=== PATIENT | female | born 1955 | race Caucasian/White ===

== ENCOUNTER → 2019-01-05 13:34 | Outpatient (CLI) | payer MEDICARE, OTHER, SELFPAY | PROVIDERS: PCP Physician Assistant; Visit Provider Physician Assistant | DX: Z78.0 Asymptomatic menopausal state (principal); E28.39 Other primary ovarian failure | CPT/HCPCS: 77080 ==

== ENCOUNTER → 2019-01-06 06:58 | Outpatient (CLI) | payer MEDICARE, OTHER, SELFPAY ==
--- NOTE | 2019-01-06 07:02 | DI.MG.S_ITS ---
BILATERAL DIGITAL SCREENING MAMMOGRAM 3D/2D WITH CAD: 01/06/2019 CLINICAL: Routine screening. Comparison is made to exams dated: 07/17/2016 mammogram, 09/15/2013 mammogram, and 09/14/2013 mammogram - [facility]. The tissue of both breasts is extremely dense, which lowers the sensitivity of mammography. Current study was also evaluated with a Computer Aided Detection (CAD) system. No significant masses, calcifications, or other findings are seen in either breast. There has been no significant interval change. IMPRESSION: NEGATIVE There is no mammographic evidence of malignancy. A 1 year screening mammogram is recommended. This exam was interpreted at Station ID: [id number]. NOTE: For mammograms, a report in lay terms will be sent to the patient. Approximately 15% of breast malignancies will not be visualized mammographically. In the management of a palpable breast mass, a negative mammogram must not discourage biopsy of a clinically suspicious lesion. Electronically Signed By: Angel kennedy/jefferson:01/06/2019 10:27:55 letter sent: Normal Exam ACR BI-RADS Category 1: Negative 3341F
[2019-01-06 08:19] LABS: Alanine Aminotransferase 29 IU/L (9-52); Albumin 4.5 g/dL (3.5-5.0); Albumin Globulin Ratio 1.4 (1.0-2.8); Alkaline Phosphatase 90 U/L (38-126); Aspartate Aminotransferase 50 IU/L (14-36); BUN Creatinine Ratio 28.3 (6-22); Bilirubin Total 0.5 mg/dL (0.2-1.3); Blood Urea Nitrogen 17 mg/dL (7-17); Calcium 10.1 mg/dL (8.4-10.2); Carbon Dioxide 28 mmol/L (22-32); Chloride 103 mmol/L (98-107); Cholesterol 233 mg/dL (140-199); Estimated Glomerular Filt Rate > 60.0 mL/min (>60); Globulin 3.3 g/dL (1.7-4.1); Glucose 87 mg/dL (80-110); HEMOLYSIS < 15 (0-50); Potassium 4.2 mmol/L (3.4-5.1); Sodium 142 mmol/L (137-145); Total Protein 7.8 g/dL (6.3-8.2); Triglycerides 47 mg/dL (35-150)
[2019-01-06 08:27] LABS: HDL Cholesterol 127 mg/dL (40-60); LDL Cholesterol Calculated 97 mg/dL (<100)
== END ==
PROVIDERS: PCP Physician Assistant; Visit Provider Physician Assistant
DX: Z12.31 Encounter for screening mammogram for malignant neoplasm of breast (principal); Z13.6 Encounter for screening for cardiovascular disorders; Z13.220 Encounter for screening for lipoid disorders; K76.0 Fatty (change of) liver, not elsewhere classified
CPT/HCPCS: 36415; 77063; 77067; 80053; 80061

== ENCOUNTER → 2019-01-31 12:23 | Outpatient (CLI) | payer MEDICARE, OTHER, SELFPAY ==
[2019-01-31 16:03] LABS: Bacteria Urine None Seen
[2019-01-31 16:48] LABS: Appearance Urine UA CLOUDY; Bilirubin Urine UA NEGATIVE (NEGATIVE); Color Urine UA YELLOW; Glucose Urine UA NEGATIVE (Negative); Ketones Urine UA NEGATIVE (NEGATIVE); Leukocyte Esterase Urine UA 1+ (NEGATIVE); Nitrite Urine UA NEGATIVE (Negative); Occult Blood Urine UA 3+ (Negative); Protein Urine UA 1+ (Negative); Specific Gravity Urine UA 1.015 (1.000-1.035); Urobilinogen Urine UA 0.2 E.U./dL (0.2)
[2019-01-31 17:12] LABS: Culture Indicated Urine Specimen Cultured; RBC Urine 10-30/HPF (0-5/HPF); Squamous Epithelial Cell Urine 1-5 /HPF (0-5/HPF); Transitional Epi Cells Urine 0-1/HPF (0-5/HPF); WBC Urine 5-10/HPF (0-5/HPF)
== END ==
PROVIDERS: PCP Physician Assistant; Visit Provider Physician Assistant
DX: R30.0 Dysuria (principal)
CPT/HCPCS: 81001; 87086

== ENCOUNTER → 2019-11-08 10:06 | Outpatient (CLI) | payer MEDICARE, OTHER, SELFPAY | PROVIDERS: PCP Physician Assistant; Referring Provider Physician Assistant; Visit Provider Physician Assistant | DX: M05.79 Rheumatoid arthritis with rheumatoid factor of multiple sites without organ or systems involvement (principal); Z79.899 Other long term (current) drug therapy | CPT/HCPCS: 81001; 87077; 87086; 87186 ==

== ENCOUNTER → 2019-12-13 12:39 | Outpatient (ROUT) | payer MEDICARE, OTHER, SELFPAY ==
[2019-12-13 12:52] LABS: Add Manual Diff / Slide Review NO; Basophils Absolute Auto 0 /uL (0-100); Basophils Percent Auto 1.5 % (0-2); Eosinophils Absolute Auto 100 /uL (0-450); Eosinophils Percent Auto 4.2 % (2-4); Hematocrit 34.5 % (36-46); Hemoglobin 11.7 g/dL (12.0-16.0); Lymphocytes Absolute Auto 1700 /uL (1100-4500); Lymphocytes Percent Auto 53.2 % (25-40); Mean Corpuscular HGB Conc 33.9 % (30-36); Mean Corpuscular Volume 106.1 fL (80-100); Monocytes Absolute Auto 500 /uL (0-900); Monocytes Percent Auto 15.1 % (3-14); Neutrophils Absolute Auto 800 /uL (1500-7000); Platelet Count 119 X10^3/uL (150-400); Red Blood Cell Count 3.25 X10^6/uL (4.0-5.2); Red Cell Distribution Width 13.6 % (11.6-14.8); White Blood Cell Count 3.1 X10^3/uL (4.5-11.0)
[2019-12-13 13:12] LABS: Erythrocyte Sedimentation Rate 35 MM/HR (0-20)
[2019-12-13 13:46] LABS: T4 Total Thyroxine 5.88 ug/dL (5.5-11.0)
[2019-12-13 13:59] LABS: TSH w/ Reflex to FT4 2.42 uIU/mL (0.47-4.68)
[2019-12-13 15:23] LABS: Alanine Aminotransferase 38 IU/L (<35); Albumin 4.8 g/dL (3.5-5.0); Albumin Globulin Ratio 1.5 (1.0-2.8); Alkaline Phosphatase 121 U/L (38-126); Aspartate Aminotransferase 92 IU/L (14-36); BUN Creatinine Ratio 32.1 (6-22); Bilirubin Total 0.5 mg/dL (0.2-1.3); Blood Urea Nitrogen 18 mg/dL (7-17); Carbon Dioxide 29 mmol/L (22-32); Chloride 104 mmol/L (98-107); Estimated Glomerular Filt Rate > 60.0 mL/min (>60); Globulin 3.3 g/dL (1.7-4.1); Glucose 90 mg/dL (80-110); HEMOLYSIS < 15 (0-50); Potassium 4.1 mmol/L (3.4-5.1); Sodium 143 mmol/L (137-145); Total Protein 8.1 g/dL (6.3-8.2)
[2019-12-13 15:37] LABS: C-Reactive Protein Quant < 0.5 mg/dL (<1.0)
[2019-12-13 16:10] LABS: Vitamin D 25 Hydroxy (D3) 45.4 ng/mL (30.0-100.0)
[2019-12-13 16:27] LABS: Folate 10.3 ng/mL (2.76-20.0); Vitamin B12 593 pg/mL (239-931)
[2019-12-14 07:35] LABS: Triiodothyronine T3 Total 71 ng/dL (71-180)
[2019-12-14 13:53] LABS: ANA Screen, IFA Negative (.)
== END ==
PROVIDERS: PCP Physician Assistant; Visit Provider Internal Medicine
DX: H04.203 Unspecified epiphora, bilateral (principal); R53.83 Other fatigue; R26.89 Other abnormalities of gait and mobility; E55.9 Vitamin D deficiency, unspecified
CPT/HCPCS: 80053; 82306; 82607; 82746; 84436; 84443; 84480; 85025; 85651; 86038; 86140

== ENCOUNTER → 2019-12-16 07:41 | Outpatient (CLI) | payer MEDICARE, OTHER, SELFPAY ==
[2019-12-16 09:09] LABS: Hematocrit 35.4 % (36-46); Hemoglobin 11.9 g/dL (12.0-16.0); Mean Corpuscular HGB Conc 33.6 % (30-36); Mean Corpuscular Hemoglobin 35.5 PG (26-34); Mean Corpuscular Volume 105.8 fL (80-100); Platelet Count 137 X10^3/uL (150-400); Red Blood Cell Count 3.34 X10^6/uL (4.0-5.2); Red Cell Distribution Width 13.3 % (11.6-14.8); White Blood Cell Count 2.7 X10^3/uL (4.5-11.0)
[2019-12-16 09:10] LABS: Reticulocyte Count, Percent 1.2 % (1.06-2.63)
[2019-12-16 09:12] LABS: Prothrombin Time 11.9 SECONDS (10.1-12.7)
[2019-12-16 09:15] LABS: PTT Partial Thromboplastin Tim 33 SECONDS (26.4-36.2)
[2019-12-16 09:48] LABS: HEMOLYSIS < 15 (0-50); Iron 144 ug/dL (37-170); Neutrophils Absolute Manual 864 /uL (3000-5900); Total Cells Counted 100
[2019-12-16 09:50] LABS: Alanine Aminotransferase 39 IU/L (<35); Albumin 4.7 g/dL (3.5-5.0); Albumin Globulin Ratio 1.5 (1.0-2.8); Alkaline Phosphatase 105 U/L (38-126); Aspartate Aminotransferase 92 IU/L (14-36); Bilirubin Total 0.5 mg/dL (0.2-1.3); Bilirubin Unconjugated 0.4 mg/dL (0.0-1.1); Gamma Glutamyl Transpeptidase 159 U/L (12-43); Globulin 3.1 g/dL (1.7-4.1); HEMOLYSIS < 15 (0-50); Lactate Dehydrogenase 583 U/L (313-618); Macrocytosis 1+; Total Protein 7.8 g/dL (6.3-8.2)
[2019-12-16 09:59] LABS: Percent Iron Saturation 58 % (15-50); Total Iron Binding Capacity 247 ug/dL (265-497); Transferrin 227 mg/dL (206-381)
[2019-12-16 10:24] LABS: Ferritin 209 ng/mL (11-264)
[2019-12-16 10:28] LABS: Hepatitis B Surface Antigen NEGATIVE s/c (NEGATIVE)
[2019-12-17 03:17] LABS: Hepatitis B Core Antibody Negative (Negative); Hepatitis B Surf Ab Qualitativ Non Reactive (.)
[2019-12-17 05:40] LABS: Haptoglobin 87 mg/dL (37-355)
[2019-12-19 14:07] LABS: Alpha-1-Globulin 0.3 g/dL (0.0-0.4); Alpha-2-Globulin 0.7 g/dL (0.4-1.0); Gamma Globulin 1.3 g/dL (0.4-1.8); Globulin Total 3.3 g/dL (2.2-3.9); Protein, Total 7.3 g/dL (6.0-8.5)
== END ==
PROVIDERS: PCP Internal Medicine; Referring Provider Internal Medicine; Visit Provider Internal Medicine
DX: D61.818 Other pancytopenia (principal); R74.0 Nonspecific elevation of levels of transaminase and lactic acid dehydrogenase [LDH]; G62.9 Polyneuropathy, unspecified
CPT/HCPCS: 36415; 80076; 82728; 82977; 83010; 83540; 83550; 83615; 84155; 84165; 85025; 85045; 85610; 85730; 86704; 86706; 87340

== ENCOUNTER → 2020-08-17 11:43 | Outpatient (CLI) | payer MEDICARE, OTHER, SELFPAY ==
--- NOTE | 2020-08-17 | DI.CT.S_ITS ---
PROCEDURE: CT ABDOMEN PELVIS W CON INDICATIONS: Lower abdominal pain TECHNIQUE: After the administration of oral and intravenous contrast, 5 mm thick sections acquired from the diaphragms to the symphysis. 5 mm thick coronal and sagittal reformats were performed. For radiation dose reduction, the following was used: automated exposure control, adjustment of mA and/or kV according to patient size. COMPARISON: None. FINDINGS: Image quality: Excellent. ABDOMEN: Lung bases: Lung bases are clear. Heart size is normal. Solid organs: Within segment 7 of the right hepatic lobe, there is an oval hypoattenuating lesion with indistinct margins measuring up to 1.7 x 1.3 cm in transverse dimension. The finding is incompletely characterized on the current study. The gallbladder appears within normal limits without calcified gallstones. Biliary system is non-dilated. Pancreas enhances normally. No peripancreatic fat stranding or fluid collections. No pancreatic duct dilatation. The spleen is normal in size. No adrenal nodules. Kidneys demonstrate no hydronephrosis. Peritoneum and bowel: Stomach and small bowel loops are normal in caliber and wall thickness. The appendix is not discretely well visualized but there is no definite evidence of acute appendicitis. There is diffuse colonic wall thickening with mucosal enhancement and pericolonic fat stranding involving the ascending, transverse, and descending colon as well as the proximal sigmoid colon. The findings are consistent with a sousa-colitis. There is a short nondistended segment within the mid sigmoid colon with associated mild colonic wall thickening. Dilatation of the colon is demonstrated in the sigmoid colon proximal to this segment. Nodes and vessels: No retroperitoneal or mesenteric adenopathy. Aorta and inferior vena cava are normal in caliber. Miscellaneous: No ventral hernias. PELVIS: Genitourinary: Bladder wall thickness is normal. Miscellaneous: No inguinal hernias or adenopathy. Bones: No suspicious bony lesions. There is multilevel mild to moderate degenerative disc disease most prominent at L4-5 where there is moderate loss of disc height. There is also moderate facet arthropathy in the lower lumbar spine. No pars defects. Grade 2 anterolisthesis is demonstrated at L4-5. No vertebral body compression fractures. IMPRESSION: 1. Diffuse sousa-colitis likely secondary to an infectious or inflammatory etiology. Ischemic colitis is less likely given the length of involvement. 2. Short nondistended segment in the mid sigmoid colon with mild associated wall thickening and proximal colonic dilatation. The differential includes a segmental colitis, peristaltic activity, or intramural mass. Consider follow-up evaluation with colonoscopy when clinically feasible. 3. Nonspecific hypoattenuating lesion in the right hepatic lobe. Recommend follow-up evaluation with a liver protocol MRI or CT if clinically indicated. Dictated by: Shaka Hernandez M.D. on 08/17/2020 at 14:11 Approved by: Shaka Hernandez M.D. on 08/17/2020 at 14:24
[2020-08-17 13:26] LABS: Add Manual Diff / Slide Review NO; Basophils Absolute Auto 0 /uL (0-100); Basophils Percent Auto 0.5 % (0-2); Eosinophils Absolute Auto 0 /uL (0-450); Eosinophils Percent Auto 0.6 % (2-4); Hematocrit 38.4 % (36-46); Hemoglobin 12.7 g/dL (12.0-16.0); Lymphocytes Absolute Auto 1300 /uL (1100-4500); Lymphocytes Percent Auto 20.6 % (25-40); Mean Corpuscular HGB Conc 33.1 % (30-36); Mean Corpuscular Volume 102.7 fL (80-100); Monocytes Absolute Auto 1500 /uL (0-900); Monocytes Percent Auto 22.9 % (3-14); Neutrophils Absolute Auto 3600 /uL (1500-7000); Neutrophils Percent Auto 55.4 % (50-75); Platelet Count 187 X10^3/uL (150-400); Red Blood Cell Count 3.74 X10^6/uL (4.0-5.2); Red Cell Distribution Width 12.3 % (11.6-14.8); White Blood Cell Count 6.5 X10^3/uL (4.5-11.0)
[2020-08-17 13:42] LABS: Alanine Aminotransferase 14 IU/L (<35); Albumin 4.6 g/dL (3.5-5.0); Albumin Globulin Ratio 1.2 (1.0-2.8); Alkaline Phosphatase 82 U/L (38-126); Aspartate Aminotransferase 36 IU/L (14-36); BUN Creatinine Ratio 33.3 (6-22); Bilirubin Total 0.6 mg/dL (0.2-1.3); Blood Urea Nitrogen 22 mg/dL (7-17); C-Reactive Protein Quant 2.1 mg/dL (<1.0); Calcium 10.2 mg/dL (8.4-10.2); Carbon Dioxide 28 mmol/L (22-32); Chloride 101 mmol/L (98-107); Estimated Glomerular Filt Rate > 60.0 mL/min (>60); Globulin 3.9 g/dL (1.7-4.1); Glucose 98 mg/dL (80-110); HEMOLYSIS < 15 (0-50); Potassium 4.2 mmol/L (3.4-5.1); Sodium 137 mmol/L (137-145); Total Protein 8.5 g/dL (6.3-8.2)
[2020-08-17 13:47] LABS: Erythrocyte Sedimentation Rate 60 MM/HR (0-20)
[2020-08-17 14:12] LABS: Bacteria Urine None Seen; RBC Urine None Seen (0-5/HPF); WBC Urine None Seen (0-5/HPF)
[2020-08-17 14:44] LABS: Appearance Urine UA Clear; Color Urine UA Yellow; Glucose Urine UA NEGATIVE (Negative); Ketones Urine UA TRACE (NEGATIVE); Protein Urine UA Negative (Negative); Specific Gravity Urine UA 1.015 (1.000-1.035); pH Urine UA 5.5 (4.5-8.0)
[2020-08-17 14:45] LABS: Amorphous Sediment Urine 2+; Bilirubin Urine UA Negative (NEGATIVE); Leukocyte Esterase Urine UA NEGATIVE (NEGATIVE); Nitrite Urine UA NEGATIVE (Negative); Occult Blood Urine UA TRACE-LYSED (Negative); Urobilinogen Urine UA 0.2 E.U./dL (0.2)
[2020-08-17 14:46] LABS: Culture Indicated Urine Cult Not Indicated
== END ==
PROVIDERS: PCP Internal Medicine; Referring Provider Internal Medicine; Visit Provider Internal Medicine
DX: R10.30 Lower abdominal pain, unspecified (principal); K51.00 Ulcerative (chronic) pancolitis without complications; K76.9 Liver disease, unspecified
CPT/HCPCS: 36415; 74177; 80053; 81001; 85025; 85651; 86140

== ENCOUNTER → 2020-10-25 09:16 | Outpatient (CLI) | payer MEDICARE, OTHER, SELFPAY ==
[2020-10-25 10:52] LABS: Add Manual Diff / Slide Review NO; Basophils Absolute Auto 0 /uL (0-100); Basophils Percent Auto 0.8 % (0-2); Eosinophils Absolute Auto 100 /uL (0-450); Eosinophils Percent Auto 1.6 % (2-4); Hematocrit 36.3 % (36-46); Lymphocytes Absolute Auto 1500 /uL (1100-4500); Lymphocytes Percent Auto 40.9 % (25-40); Mean Corpuscular HGB Conc 33.1 % (30-36); Mean Corpuscular Hemoglobin 34.2 PG (26-34); Mean Corpuscular Volume 103.3 fL (80-100); Monocytes Absolute Auto 500 /uL (0-900); Monocytes Percent Auto 14.1 % (3-14); Neutrophils Absolute Auto 1500 /uL (1500-7000); Neutrophils Percent Auto 42.6 % (50-75); Platelet Count 184 X10^3/uL (150-400); Red Blood Cell Count 3.52 X10^6/uL (4.0-5.2); Red Cell Distribution Width 13.6 % (11.6-14.8); White Blood Cell Count 3.6 X10^3/uL (4.5-11.0)
[2020-10-25 12:01] LABS: Erythrocyte Sedimentation Rate 34 MM/HR (0-20)
[2020-10-25 12:19] LABS: Alanine Aminotransferase 20 IU/L (<35); Albumin 4.7 g/dL (3.5-5.0); Albumin Globulin Ratio 1.3 (1.0-2.8); Alkaline Phosphatase 112 U/L (38-126); Aspartate Aminotransferase 47 IU/L (14-36); BUN Creatinine Ratio 32.2 (6-22); Bilirubin Total 0.5 mg/dL (0.2-1.3); Blood Urea Nitrogen 19 mg/dL (7-17); Calcium 10.2 mg/dL (8.4-10.2); Carbon Dioxide 31 mmol/L (22-32); Chloride 102 mmol/L (98-107); Estimated Glomerular Filt Rate > 60.0 mL/min (>60); Globulin 3.6 g/dL (1.7-4.1); Glucose 86 mg/dL (80-110); HEMOLYSIS < 15 (0-50); Potassium 4.5 mmol/L (3.4-5.1); Sodium 137 mmol/L (137-145); Total Protein 8.3 g/dL (6.3-8.2)
[2020-10-25 12:24] LABS: C-Reactive Protein Quant < 0.5 mg/dL (<1.0)
== END ==
PROVIDERS: PCP Internal Medicine; Referring Provider Student in an Organized Health Care Education/Training Program; Visit Provider Student in an Organized Health Care Education/Training Program
DX: R10.9 Unspecified abdominal pain (principal)
CPT/HCPCS: 36415; 80053; 85025; 85651; 86140

== ENCOUNTER → 2020-12-07 11:09 | Outpatient (CLI) | payer MEDICARE, OTHER, SELFPAY ==
--- NOTE | 2020-12-07 | DI.MG.S_ITS ---
BILATERAL DIGITAL SCREENING MAMMOGRAM 3D/2D WITH CAD: 12/07/2020 CLINICAL: Routine screening. Comparison is made to exams dated: 01/06/2019 mammogram - [facility], 07/17/2016 mammogram, and 09/15/2013 mammogram - [facility]. The tissue of both breasts is extremely dense, which lowers the sensitivity of mammography. Current study was also evaluated with a Computer Aided Detection (CAD) system. No significant masses, calcifications, or other findings are seen in either breast. There has been no significant interval change. IMPRESSION: NEGATIVE There is no mammographic evidence of malignancy. A 1 year screening mammogram is recommended. This exam was interpreted at Station ID: [id number]. NOTE: For mammograms, a report in lay terms will be sent to the patient. Approximately 15% of breast malignancies will not be visualized mammographically. In the management of a palpable breast mass, a negative mammogram must not discourage biopsy of a clinically suspicious lesion. Electronically Signed By: Shaka carreno/jefferson:12/07/2020 12:26:59 letter sent: Normal Exam ACR BI-RADS Category 1: Negative 3341F
== END ==
PROVIDERS: PCP Physician Assistant; Referring Provider Physician Assistant; Visit Provider Physician Assistant
DX: Z12.31 Encounter for screening mammogram for malignant neoplasm of breast (principal)
CPT/HCPCS: 77063; 77067

== ENCOUNTER → 2020-12-12 09:31 | Outpatient (CLI) | payer MEDICARE, OTHER, SELFPAY ==
--- NOTE | 2020-12-12 | DI.CT.S_ITS ---
PROCEDURE: CT ABDOMEN WWO PELVIS W INDICATIONS: Lower abdominal pain. Liver lesion seen on prior CT. TECHNIQUE: After the administration of oral contrast, 5 mm thick sections acquired from the diaphragms to the iliac crests. After the administration of intravenous contrast, 5 mm thick sections acquired from the diaphragms to the symphysis. 5 mm thick coronal and sagittal reformats were acquired. For radiation dose reduction, the following was used: automated exposure control, adjustment of mA and/or kV according to patient size. COMPARISON: [facility], CT, CT ABDOMEN PELVIS W CON, 08/17/2020, 13:46. FINDINGS: Image quality: Excellent. ABDOMEN: Lung bases: There is minimal dependent atelectasis. Heart size is normal. Solid organs: Within segment 7 of the right hepatic lobe, there is an oval hypoattenuating lesion redemonstrated measuring up to 1.7 by 1.1 cm in transverse dimension, stable in size compared to the prior study. Following contrast administration, there is discontinuous eccentric peripheral hypervascular enhancement on the portal venous phase with progressive centripetal internal enhancement on the delayed phase. Findings are compatible with a cavernous hemangioma. There is a punctate hypodensity in the left hepatic lobe within segment 2 which is too small to characterize but likely represents a cyst and appears unchanged. The gallbladder appears within normal limits without calcified gallstones. Biliary system is non-dilated. Pancreas enhances normally. No peripancreatic fat stranding or fluid collections. No pancreatic duct dilatation. The spleen is normal in size. No adrenal nodules. Kidneys demonstrate no hydronephrosis. Bowel and peritoneum: Stomach and small bowel loops are normal in caliber and wall thickness. There is a large amount of stool throughout the colon. No free fluid or air. Nodes and vessels: No retroperitoneal or mesenteric adenopathy by size criteria. Aorta and inferior vena are normal in caliber. Miscellaneous: No ventral hernias. PELVIS: Genitourinary: Bladder wall thickness is normal. Miscellaneous: No inguinal hernias or adenopathy. Bones: No suspicious bony lesions. There is borderline grade 2 anterolisthesis at L4-5 with moderate degenerative disc disease. No pars defects. There is moderate facet arthropathy in the lower lumbar spine. No vertebral body compression fractures. IMPRESSION: 1. Stable lesion in segment 7 of the right hepatic lobe with imaging findings consistent with a cavernous hemangioma. 2. Large amount of colonic stool throughout the colon compatible with constipation or obstipation. No definite bowel obstruction. Dictated by: Shaka Hernanedz M.D. on 12/12/2020 at 16:33 Approved by: Shaka Hernandez M.D. on 12/12/2020 at 16:53
[2020-12-12 09:57] LABS: BUN Creatinine Ratio 33.3 (6-22); Blood Urea Nitrogen 21 mg/dL (7-17); Estimated Glomerular Filt Rate > 60.0 mL/min (>60)
== END ==
PROVIDERS: PCP Physician Assistant; Referring Provider Internal Medicine Endocrinology, Diabetes & Metabolism; Visit Provider Internal Medicine Endocrinology, Diabetes & Metabolism
DX: D18.09 Hemangioma of other sites (principal); M85.80 Other specified disorders of bone density and structure, unspecified site; Z78.0 Asymptomatic menopausal state; K76.9 Liver disease, unspecified; R10.30 Lower abdominal pain, unspecified
CPT/HCPCS: 36415; 74178; 77080; 82565; 84520; Q9967

== ENCOUNTER → 2021-12-18 10:58 | Outpatient (CLI) | payer MEDICARE, OTHER, SELFPAY ==
--- NOTE | 2021-12-18 | DI.MG.S_ITS ---
BILATERAL DIGITAL SCREENING MAMMOGRAM 3D/2D WITH CAD: 12/18/2021 CLINICAL: Routine screening. Comparison is made to exams dated: 12/07/2020 mammogram, 01/06/2019 mammogram - [facility], and 07/17/2016 mammogram - [facility]. The tissue of both breasts is extremely dense, which lowers the sensitivity of mammography. Current study was also evaluated with a Computer Aided Detection (CAD) system. There are two possible oval asymmetries with an obscured and circumscribed margin in the right breast middle depth lateral region seen on the craniocaudal view only. These are more prominent. No other significant masses, calcifications, or other findings are seen in either breast. IMPRESSION: INCOMPLETE: NEEDS ADDITIONAL IMAGING EVALUATION The possible asymmetries in the right breast most likely are cysts but remain indeterminate. Additional views with possible ultrasound are recommended. This exam was interpreted at Station ID: [id number]. NOTE: For mammograms, a report in lay terms will be sent to the patient. Approximately 15% of breast malignancies will not be visualized mammographically. In the management of a palpable breast mass, a negative mammogram must not discourage biopsy of a clinically suspicious lesion. Electronically Signed By: Rosanna perry/:12/18/2021 12:17:55 letter sent: Additional Imaging Needed ACR BI-RADS Category 0: Incomplete 3340F
== END ==
PROVIDERS: PCP Physician Assistant; Referring Provider Physician Assistant; Visit Provider Physician Assistant
DX: Z12.31 Encounter for screening mammogram for malignant neoplasm of breast (principal)
CPT/HCPCS: 77063; 77067

== ENCOUNTER → 2022-01-03 08:40 | Outpatient (CLI) | payer MEDICARE, OTHER, SELFPAY ==
--- NOTE | 2022-01-03 | DI.MG.S_ITS ---
UNILATERAL RIGHT DIGITAL DIAGNOSTIC MAMMOGRAM 3D/2D WITH ADDITIONAL VIEWS: 01/03/2022 CLINICAL: Additional evaluation requested from prior study. Comparison is made to exams dated: 12/18/2021 mammogram, 12/07/2020 mammogram, and 01/06/2019 mammogram - [facility]. The tissue of right breast is extremely dense, which lowers the sensitivity of mammography. There is an asymmetry with an obscured margin in the right breast middle depth lateral region seen on the craniocaudal view only. This is not seen in additional views. No other significant masses or calcifications are seen in the breast. IMPRESSION: BENIGN The asymmetry in the right breast most likely is fibroglandular tissue and is benign. There is no mammographic evidence of malignancy. A 1 year screening mammogram is recommended. This exam was interpreted at Station ID: [id number]. NOTE: For mammograms, a report in lay terms will be sent to the patient. Approximately 15% of breast malignancies will not be visualized mammographically. In the management of a palpable breast mass, a negative mammogram must not discourage biopsy of a clinically suspicious lesion. Electronically Signed By: Keith Nash acr/penrad:01/03/2022 09:28:51 letter sent: Normal Exam ACR BI-RADS Category 2: Benign Finding(s) 3342F
== END ==
PROVIDERS: PCP Physician Assistant; Referring Provider Physician Assistant; Visit Provider Physician Assistant
DX: R92.8 Other abnormal and inconclusive findings on diagnostic imaging of breast (principal); N64.89 Other specified disorders of breast
CPT/HCPCS: 77065; G0279

== ENCOUNTER → 2022-11-13 11:41 | Outpatient (CLI) | payer MEDICARE, OTHER, SELFPAY | PROVIDERS: PCP Physician Assistant; Referring Provider Physician Assistant; Visit Provider Physician Assistant | DX: Z78.0 Asymptomatic menopausal state (principal); M85.851 Other specified disorders of bone density and structure, right thigh | CPT/HCPCS: 77080 ==

== ENCOUNTER → 2023-01-06 08:00 | Outpatient (CLI) | payer MEDICARE, OTHER, SELFPAY ==
--- NOTE | 2023-01-06 | DI.MG.S_ITS ---
BILATERAL DIGITAL SCREENING MAMMOGRAM 3D/2D WITH CAD: 01/06/2023 CLINICAL: Routine screening. Comparison is made to exams dated: 01/03/2022 mammogram, 12/18/2021 mammogram, 12/07/2020 mammogram, and 01/06/2019 mammogram - [facility]. Both breasts are extremely dense, which lowers the sensitivity of mammography (category d />75% glandular tissue). Current study was also evaluated with a Computer Aided Detection (CAD) system. No significant masses, calcifications, or other findings are seen in either breast. There has been no significant interval change. IMPRESSION: NEGATIVE There is no mammographic evidence of malignancy. A 1 year screening mammogram is recommended. Based on the Tyrer Cuzick model (a risk assessment model) the patient's lifetime risk is 14.7% and her 10 year risk is 8.8%. According to the ACR, ACS, and NCCN guidelines, an annual breast MRI exam along with mammogram is recommended if the patient's lifetime risk is 20% or greater. This exam was interpreted at Station ID: [id number]. NOTE: For mammograms, a report in lay terms will be sent to the patient. Approximately 15% of breast malignancies will not be visualized mammographically. In the management of a palpable breast mass, a negative mammogram must not discourage biopsy of a clinically suspicious lesion. Electronically Signed By: Rosanna perry/jefferson:01/06/2023 12:16:02 letter sent: Normal Exam ACR BI-RADS Category 1: Negative 3341F
== END ==
PROVIDERS: PCP Physician Assistant; Referring Provider Physician Assistant; Visit Provider Physician Assistant
DX: Z12.31 Encounter for screening mammogram for malignant neoplasm of breast (principal)
CPT/HCPCS: 77063; 77067

== ENCOUNTER → 2024-01-08 09:13 | Outpatient (CLI) | payer MEDICARE, OTHER, SELFPAY ==
--- NOTE | 2024-01-08 09:14 | DI.MG.S_ITS ---
BILATERAL DIGITAL SCREENING MAMMOGRAM 3D/2D WITH CAD: 01/08/2024 CLINICAL: Routine screening. Comparison is made to exams dated: 01/06/2023 mammogram, 01/03/2022 mammogram, 12/18/2021 mammogram, and 12/07/2020 mammogram - [facility]. Both breasts are extremely dense, which lowers the sensitivity of mammography (category d />75% glandular tissue). Current study was also evaluated with a Computer Aided Detection (CAD) system. No significant masses, calcifications, or other findings are seen in either breast. There has been no significant interval change. IMPRESSION: NEGATIVE There is no mammographic evidence of malignancy. A 1 year screening mammogram is recommended. Based on the Tyrer Cuzick model (a risk assessment model) the patient's lifetime risk is 14.0% and her 10 year risk is 9.0%. According to the ACR, ACS, and NCCN guidelines, an annual breast MRI exam along with mammogram is recommended if the patient's lifetime risk is 20% or greater. This exam was interpreted at Station ID: [id number]. NOTE: For mammograms, a report in lay terms will be sent to the patient. Approximately 15% of breast malignancies will not be visualized mammographically. In the management of a palpable breast mass, a negative mammogram must not discourage biopsy of a clinically suspicious lesion. Electronically Signed By: Humphrey french/jefferson:01/08/2024 16:35:42 letter sent: Normal Exam ACR BI-RADS Category 1: Negative 3341F
== END ==
LOC: MAMMO 09:14
PROVIDERS: PCP Physician Assistant; Referring Provider Physician Assistant; Visit Provider Physician Assistant
DX: Z12.31 Encounter for screening mammogram for malignant neoplasm of breast (principal); R92.343 Mammographic extreme density, bilateral breasts
CPT/HCPCS: 77063; 77067

== ENCOUNTER → 2024-12-07 11:13 | Outpatient (CLI) | payer MEDICARE, OTHER, SELFPAY ==
--- NOTE | 2024-12-07 11:16 | DI.RAD.S_ITS ---
PROCEDURE: XR DEXA AXIAL SKELETON INDICATIONS: SCREENING FOR OSTEOPOROSIS COMPARISON: [facility], CR, XR DEXA AXIAL SKELETON, 11/13/2022, 11:58. [facility], CR, XR DEXA AXIAL SKELETON, 12/12/2020, 9:58. FINDINGS: Lumbar Spine: Bone mineral density 1.2 g/cm2, T score 1.4, previously 1.3. Left Femoral Neck: Bone mineral density 0.69 g/cm2, T score -1.5, previously -0.9. Left Hip: Bone mineral density 0.75 g/cm2, T score -1.5, previously -1.3. Fracture Risk Calculation (when applicable): 10-year fracture risk of a major osteoporotic fracture 8.3 percent and of a hip fracture 1.4 percent. (T score greater or equal to -1.0 to: NORMAL) (T score from -1.1 to -2.4: OSTEOPENIA) (T score less than or equal to -2.5: OSTEOPOROSIS) IMPRESSION: Osteopenia with fracture risk calculation as above. T-score in the left femoral neck is declined. Follow-up guidelines as follows: Osteoporosis: Consider a repeat DEXA and Vertebral Fracture Assessment (VFA) exam in 2 years or sooner if medically necessary, to reassess this patient's status. Osteopenia: Consider a repeat DEXA in 2-3 years to reassess this patient's status, or if there is a new clinical indication. Normal: Consider a repeat DEXA in 5 years or sooner, or if there is a new clinical indication. All treatment decisions require clinical judgment and consideration of individual patient factors, including patient preferences, comorbidities, previous drug use, risk factors not captured in the FRAX model (e.g., frailty, falls, vitamin D deficiency, increased bone turnover, interval significant decline in bone density ) and possible under- or over-estimation of fracture risk by FRAX. In addition, the NOF Guide recommends that FDA-approved medical therapies be considered in postmenopausal women and men age >= 50 years with a: * Hip or vertebral (clinical or morphometric) fracture * T-score of <=-2.5 at the spine or hip * Ten-year fracture probability by FRAX of >= 3% for hip fracture or >=20% for major osteoporotic fracture. Dictated by: Chun Ott M.D. on 12/07/2024 at 12:44 Approved by: Chun Ott M.D. on 12/07/2024 at 12:45
== END ==
PROVIDERS: PCP Physician Assistant; Referring Provider Physician Assistant; Visit Provider Physician Assistant
DX: Z13.820 Encounter for screening for osteoporosis (principal); M85.89 Other specified disorders of bone density and structure, multiple sites; Z78.0 Asymptomatic menopausal state
CPT/HCPCS: 77080

== ENCOUNTER → 2025-01-14 09:42 | Outpatient (CLI) | payer MEDICARE, OTHER, SELFPAY ==
--- NOTE | 2025-01-14 09:43 | DI.MG.S_ITS ---
MM screening mammo BI: 01/14/2025. BI-RADS: 0 CLINICAL: 69-year old female for bilateral screening mammogram. Tyrer-Cuzick lifetime risk of 4.7%. No personal or first-degree family history of breast cancer. PRIOR EXAMS 01/08/2024, 01/06/2023, 01/03/2022, 12/18/2021, 12/07/2020, 01/06/2019. MAMMOGRAPHY TECHNIQUE: 2D and 3D (tomosynthesis) digital mammographic views obtained, with additional images as needed for full coverage. Current study was also evaluated with a Computer Aided Detection (CAD) system. DENSITY D. The breasts are extremely dense, which lowers the sensitivity of mammography. MAMMOGRAPHY FINDINGS Right: No suspicious mass, asymmetry, microcalcification, or other abnormality seen. Left: CC only, Outer, Posterior depth, measuring 1 cm: Asymmetry needing additional imaging evaluation. Associated calcifications are noted. IMPRESSION: Right * No evidence of malignancy. Left (Asymmetry): CC only, Outer, Posterior depth, measuring 1 cm * Incomplete - asymmetry needing additional imaging evaluation. RECOMMENDATIONS Left: CC only, Outer, Posterior depth * Further evaluation with diagnostic mammography and diagnostic ultrasound. Ultrasound to be performed only if needed. OVERALL ASSESSMENT CATEGORY BI-RADS-0: Incomplete - Need Additional Imaging Evaluation. ELECTRONICALLY SIGNED: Austyn Hallman M.D. on 01/16/2025 at 10:09:32 AM PT Interpreting Station ID: [id number]
== END ==
PROVIDERS: PCP Physician Assistant; Referring Provider Physician Assistant; Visit Provider Physician Assistant
DX: Z12.31 Encounter for screening mammogram for malignant neoplasm of breast (principal); R92.343 Mammographic extreme density, bilateral breasts
CPT/HCPCS: 77063; 77067

== ENCOUNTER → 2025-02-09 13:27 | Outpatient (CLI) | payer MEDICARE, OTHER, SELFPAY ==
--- NOTE | 2025-02-09 13:29 | DI.MG.S_ITS ---
MM diagnostic mammo unilat LT, US breast LT limited: 02/09/2025 BI-RADS: 3 CLINICAL: 69-year old female for left diagnostic mammogram and left diagnostic breast ultrasound that is a recall from screening on 01/14/2025. Tyrer-Cuzick lifetime risk of 4.7%. No personal or first-degree family history of breast cancer. PRIOR EXAMS Mammogram(s): 01/14/2025. Six Other Exams on 01/08/2024, 01/06/2023, 01/03/2022, 12/18/2021, 12/07/2020, 01/06/2019. MAMMOGRAPHY TECHNIQUE: 2D and 3D (tomosynthesis) digital mammographic views obtained, with additional images as needed for full coverage. Current study was also evaluated with a Computer Aided Detection (CAD) system. ULTRASOUND TECHNIQUE Real-time metcalf scale and color doppler imaging of the area of clinical interest was performed with image documentation. DENSITY Left: D. The breasts are extremely dense, which lowers the sensitivity of mammography. MAMMOGRAPHY FINDINGS Left (finding-1): Lower Outer at 3:00, Posterior depth, measuring 1.3cm. Previous report: CC only, Outer: There is a circumscribed, oval mass present. ULTRASOUND FINDINGS Left (finding-1): Outer at 3:00, 8 cm from nipple, measuring 1.3 x 1.3 x 1 cm: Correlating with findings on mammogram there is a complicated cyst present containing fluid-debris level. Doppler shows only rim vascularity. IMPRESSION: Left (Complicated Cyst): Outer at 3:00, 8 cm from nipple, measuring 1.3 x 1.3 x 1 cm * Probably Benign. RECOMMENDATIONS Left: Outer at 3:00, 8 cm from nipple * Six month followup with diagnostic mammography and diagnostic ultrasound. COMMENTS: Findings and recommendations were conveyed to the patient during today's evaluation. OVERALL ASSESSMENT CATEGORY BI-RADS-3: Probably Benign. ELECTRONICALLY SIGNED: Génesis Brown M.D. on 02/09/2025 at 02:55:21 PM PT Interpreting Station ID: [id number]
== END ==
LOC: MAMMO 13:28
PROVIDERS: PCP Physician Assistant
DX: R92.8 Other abnormal and inconclusive findings on diagnostic imaging of breast (principal); N60.02 Solitary cyst of left breast; R92.332 Mammographic heterogeneous density, left breast
CPT/HCPCS: 76642; 77065; G0279

== ENCOUNTER → 2025-02-22 07:08 | Outpatient (CLI) | payer MEDICARE, OTHER, SELFPAY ==
[2025-02-22 08:54] LABS: Alanine Aminotransferase 33 IU/L (<35); Albumin Globulin Ratio 1.5 (1.0-2.8); Alkaline Phosphatase 126 U/L (38-126); Aspartate Aminotransferase 70 IU/L (14-36); BUN Creatinine Ratio 22.8 (6-22); Bilirubin Total 0.9 mg/dL (0.2-1.3); Blood Urea Nitrogen 18 mg/dL (7-17); Calcium 10.4 mg/dL (8.4-10.2); Carbon Dioxide 24 mmol/L (22-32); Chloride 106 mmol/L (98-107); Estimated Glomerular Filt Rate > 60 mL/min (>60); Globulin 3.3 g/dL (1.7-4.1); Glucose 89 mg/dL (70-99); HEMOLYSIS < 15 (0-50); Potassium 4.2 mmol/L (3.4-5.1); Sodium 141 mmol/L (137-145); Total Protein 8.3 g/dL (6.3-8.2)
[2025-02-22 09:30] LABS: Vitamin D 25 Hydroxy (D3) 53.2 ng/mL (30.0-100.0)
[2025-02-24 13:10] LABS: Albumin 4.2 g/dL (2.9-4.4); Alpha-1-Globulin 0.3 g/dL (0.0-0.4); Alpha-2-Globulin 0.7 g/dL (0.4-1.0); Gamma Globulin 1.4 g/dL (0.4-1.8); Globulin Total 3.4 g/dL (2.2-3.9); Protein, Total 7.6 g/dL (6.0-8.5)
[2025-02-27 08:36] LABS: Alpha-1 Globulin, Ur 3.6 % (.); Beta Globulin, Ur 18.4 % (.); Gamma Globulin, Ur 10.9 % (.); M-Spike % Not Observed % (Not Observed); Urine Total Protein 32.6 mg/dL (Not Estab.)
[2025-02-28 07:40] LABS: Vitamin A 96.9 ug/dL (22.0-69.5)
== END ==
PROVIDERS: PCP Physician Assistant; Referring Provider Internal Medicine Endocrinology, Diabetes & Metabolism; Visit Provider Internal Medicine Endocrinology, Diabetes & Metabolism
DX: E83.52 Hypercalcemia (principal)
CPT/HCPCS: 36415; 80053; 82306; 82397; 84155; 84156; 84165; 84166; 84590

== ENCOUNTER → 2025-02-23 10:58 | Outpatient (CLI) | payer MEDICARE, OTHER, SELFPAY ==
[2025-02-23 12:17] LABS: Calcium 10.1 mg/dL (8.4-10.2)
[2025-02-24 10:09] LABS: Parathyroid Hormone Int 29 pg/mL (15-65)
== END ==
PROVIDERS: PCP Physician Assistant; Referring Provider Internal Medicine Endocrinology, Diabetes & Metabolism; Visit Provider Internal Medicine Endocrinology, Diabetes & Metabolism
DX: E83.52 Hypercalcemia (principal)
CPT/HCPCS: 82310; 82330; 83970

== ENCOUNTER → 2025-03-07 07:31 | Outpatient (CLI) | payer MEDICARE, OTHER, SELFPAY ==
[2025-03-07 08:38] LABS: Alanine Aminotransferase 29 IU/L (<35); Albumin 4.6 g/dL (3.5-5.0); Albumin Globulin Ratio 1.5 (1.0-2.8); Alkaline Phosphatase 130 U/L (38-126); Aspartate Aminotransferase 62 IU/L (14-36); BUN Creatinine Ratio 24.1 (6-22); Bilirubin Total 0.8 mg/dL (0.2-1.3); Blood Urea Nitrogen 20 mg/dL (7-17); Carbon Dioxide 23 mmol/L (22-32); Chloride 104 mmol/L (98-107); Estimated Glomerular Filt Rate > 60 mL/min (>60); Glucose 90 mg/dL (70-99); HEMOLYSIS < 15 (0-50); Potassium 4.2 mmol/L (3.4-5.1); Sodium 140 mmol/L (137-145); Total Protein 7.6 g/dL (6.3-8.2)
== END ==
PROVIDERS: PCP Physician Assistant; Referring Provider Internal Medicine Endocrinology, Diabetes & Metabolism; Visit Provider Internal Medicine Endocrinology, Diabetes & Metabolism
DX: R74.01 Elevation of levels of liver transaminase levels (principal)
CPT/HCPCS: 36415; 80053

== ENCOUNTER → 2025-05-03 07:20 | Outpatient (CLI) | payer MEDICARE, OTHER, SELFPAY ==
[2025-05-03 08:14] LABS: Alanine Aminotransferase 24 IU/L (<35); Albumin 4.7 g/dL (3.5-5.0); Albumin Globulin Ratio 1.5 (1.0-2.8); Alkaline Phosphatase 125 U/L (38-126); Blood Urea Nitrogen 17 mg/dL (7-17); Calcium 10.1 mg/dL (8.4-10.2); Carbon Dioxide 24 mmol/L (22-32); Chloride 106 mmol/L (98-107); Estimated Glomerular Filt Rate > 60 mL/min (>60); Globulin 3.2 g/dL (1.7-4.1); Glucose 92 mg/dL (70-99); HEMOLYSIS < 15 (0-50); Potassium 4.5 mmol/L (3.4-5.1); Sodium 142 mmol/L (137-145); Total Protein 7.9 g/dL (6.3-8.2)
== END ==
PROVIDERS: PCP Physician Assistant; Referring Provider Internal Medicine Endocrinology, Diabetes & Metabolism; Visit Provider Internal Medicine Endocrinology, Diabetes & Metabolism
DX: E67.0 Hypervitaminosis A (principal); R74.01 Elevation of levels of liver transaminase levels
CPT/HCPCS: 36415; 80053; 84590

== ENCOUNTER → 2025-08-16 07:38 | Outpatient (CLI) | payer MEDICARE, OTHER, SELFPAY ==
--- NOTE | 2025-08-16 07:40 | DI.US.S_ITS ---
MM diagnostic mammo unilat LT, US breast LT limited: 08/16/2025 BI-RADS: 2 CLINICAL: 70-year old female for left diagnostic mammogram and left diagnostic breast ultrasound. Tyrer-Cuzick lifetime risk of 4.4%. No personal or first-degree family history of breast cancer. PRIOR EXAMS Mammogram(s): 02/09/2025, 01/14/2025, 01/08/2024, 01/06/2023. MAMMOGRAPHY TECHNIQUE: 2D and 3D (tomosynthesis) digital mammographic views obtained, with additional images as needed for full coverage. Current study was also evaluated with a Computer Aided Detection (CAD) system. ULTRASOUND TECHNIQUE Real-time metcalf scale and color doppler imaging of the area of clinical interest was performed with image documentation. Left targeted breast ultrasound of the area of clinical interest and the axilla was performed with image documentation. DENSITY Left: D. The breast is extremely dense, which lowers the sensitivity of mammography. MAMMOGRAPHY FINDINGS Left (finding-1): Outer at 3:00, Posterior depth, measuring 1.9cm: Correlating with prior imaging concern there is a circumscribed, oval, equal-density mass present that has increased in size. ULTRASOUND FINDINGS Left (finding-1): Outer at 3:00, 8 cm from nipple, measuring 2.5 x 1.3 x 1.9 cm - previously measuring (02/09/2025) 1.3 x 1.3 x 1 cm: Correlating with findings on mammogram and prior imaging concern, there is a cyst with artifacts showing posterior acoustic enhancement. Doppler shows no vascularity. IMPRESSION: Left * No evidence of malignancy with benign findings. RECOMMENDATIONS Bilateral * Annual screening mammography. COMMENTS: Findings and recommendations were conveyed to the patient during today's evaluation. OVERALL ASSESSMENT CATEGORY BI-RADS-2: Benign. The [employer] recommends annual screening mammography beginning at age 40 for women with average risk of breast cancer. ELECTRONICALLY SIGNED: Matilde Del Toro M.D. on 08/18/2025 at 05:09:22 PM PT Interpreting Station ID: [id number]
--- OUTSIDE RECORDS SUMMARY | 2025-08-18 13:15 | XMS_ITS | Encounter Summary ---
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 Name Role Phone Pcp, None Selected Primary Care Provider Unavail able Encounter Details Date Type Department Care Team (Late st Contact Info) Description 2025 Orders Only [address] [phone] Nick Barba DO [address] [place] [address] Hypercalcemia Social History Tobacco Use Types Packs/Day Years Used Date Smoking Tobacco: Never Smokeless Tobacco: Never Alcohol Use Standard Drinks/Week Comments Yes 2 (1 standard drink = 0.6 oz pur e alcohol) per day Comments No Sex and Gender Information Value Date Recorded Sex Assigned at Female 11/14/2021 11:58 AM PST Legal Sex Female 1:14 PM PDT Gender Identity Female 11/14/2021 11:58 AM PST Sexual Orientation Straight 11/14/2021 11 :58 AM PST documented as of this encounter Plan of Treatment Upcoming Encounters Date Type Department Care Team (Late st Contact Info) Description 09/14/2025 9:00 AM PST Office Visit [address] [phone] Nick Barba, DO [address] [place] [address] documented as of this encounter Procedures Procedure Name Priority Date/Time Associated Diagnosis Comments VITAMIN A Routine 05/03/2025 Hypercalcemia documented in this encounter Results * Vitamin A (05/03/2025) Blood Venous blood / Unknown us Nick Ly DO LAB BLOOD ORDERABLES Final Resul t documented in this encounter Visit Diagnoses Diagnosis Hypercalcemia documented in this encounter Care Teams Collar Band Creaser Relationship Specialty Start Date End Date Pcp, None Selected PCP - General 01/12/25 documented as of this encounter
--- OUTSIDE RECORDS SUMMARY | 2025-08-18 13:15 | XMS_ITS | Encounter Summary ---
Author Organization [facility] Address [address] [place] [address] Care Team Providers Care Associate Veterinarian Name Role Phone Pcp, None Selected Primary Care Provider Unavail able Encounter Details Date Type Department Care Team (Late Contact Info) Description 02/27/2025 Orders Only [facility] Endocrinology [place] [address] [place] [phone] Nick Barba DO [address] [place] [address] Hypercalcemia Social History Tobacco Use [...] Description 09/14/2025 9:00 AM PST Office Visit [facility] Endocrinology [address] [facility] [address] [place] [phone] Nick Barba, DO [address] [place] [address] documented as of this encounter Procedures Procedure Name Priority Date/Time Associated Diagnosis Comments CALCIUM, PTH INTACT, CALCIUM IONIZED Routine 02/23/2025 Hypercalcemia PROTEIN ELECTROPHORESIS, RAN DOM URINE Routine 02/22/2025 Hypercalcemia PROTEIN ELECTROPHORESIS, SERUM Routine 02/22/2025 Hypercalcemia documented in this encounter Results * Calcium, PTH Intact, Calcium Ionized (02/23/2025) Blood Venous blood / Unknown us Nick Ly DO LAB BLOOD ORDERABLES Final Resul t [facility] [address] [facility] [address] [place] [address], * Protein Electrophoresis, Random Urine (02/22/2025) Urine Urine specimen obtained by clean catch procedure / Unknown us Nick Ly DO LAB URINE ORDERABLES Final Resul t * Protein electrophoresis, serum (02/22/2025) Blood Venous blood / Unknown us Nick Ly DO LAB BLOOD ORDERABLES Final Resul t documented in this encounter Visit Diagnoses Diagnosis Hypercalcemia documented in this encounter Care Teams Associate Veterinarian Relationship Specialty Start Date End Date Pcp, None Selected PCP - General 01/12/25 documented as of this encounter
--- OUTSIDE RECORDS SUMMARY | 2025-08-18 13:15 | XMS_ITS | Encounter Summary ---
Author Organization [facility] Address [facility] [place] [address] Care Team Providers Care Cider Press Operator Name Role Phone Pcp, None Selected Primary Care Provider Unavail able Encounter Details Date Type Department Care Team (Late st Contact Info) Description 03/07/2025 Orders Only [address] [phone] Nick Barba DO [address] [place] [address] Elevated AST (SGOT) Social History Tobacco Use Types Packs/Day Years [...] Description 09/14/2025 9:00 AM PST Office Visit [address] [phone] Nick Barba DO [address] [place], [place] [phone] documented as of this encounter Procedures Procedure Name Priority Date/Time Associated Diagnosis Comments COMPREHENSIVE METABOLIC PANEL Routine 03/07/2025 Elevated AST (SGOT) documented in this encounter Results * Comprehensive Metabolic Panel (03/07/2025) Blood Venous blood / Unknown us Nick Ly DO LAB BLOOD ORDERABLES Final Resul t documented in this encounter Visit Diagnoses Diagnosis Elevated AST (SGOT) documented in this encounter Care Teams Cider Press Operator Relationship Specialty Start Date End Date Pcp, None Selected PCP - General 01/12/25 documented as of this encounter
--- OUTSIDE RECORDS SUMMARY | 2025-08-18 13:15 | XMS_ITS | Clinical Summary ---
Author Organization [facility] Address [address] [place] [address] Care Team Providers Care Lunchroom Operator Name Role Phone Pcp, None Selected Primary Care Provider Unavail able Allergies Active Allergy Reactions Criticality Noted Date Comments Nitrofurantoin Other (see comments) ,GI intolerance Medium 05/14/2020 Dizziness Other GI intolerance High 05/14/2020 [place] Shellfish Containing Products Rash High 07/05/2021 Medications omega 8-qog-jpx-fish oil (Fish Oil) 100-160-1,000 mg capsule Take 300 mg by mouth daily Active calcium carbonate-vitam in D3 (Calcium 600 + D,3,) 600-125 mg-unit tablet Take 600 mg by mouth Active cholecalciferol , vitamin D3, (Vitamin D3) 25 mcg (1,000 unit) capsule Take 1,000 Units by mouth daily Active folic acid/multivit-m in/lutein (CENTRUM SILVER ORAL) Take by mouth Active Lactobac. rhamnosus GG-inulin ([facility]) 10 billion cell -200 mg capsule Take by mouth Active psyllium (METAMUCIL) 3.4 gram packet Take 1 packet by mouth daily Active propylene glycol (Systane Complete) 0.6 % drops Administer into affected eye(s) Active Active Problems Problem Noted Date Diagnosed Date Transaminitis 05/14/2020 Pancytopenia 05/14/2020 Immunizations Immunization Administration Dates Next Due Moderna SARS-CoV-2 Vaccine Monovalent 08/08/2021 ,12/26/2020 [id number]-2 Vaccine 11/28/2020 Family History Medical History Relation Comments Ovarian cancer Maternal Grandmother Relation Status Comments Maternal Grandmother Social History Tobacco Use Types Packs/Day Years [...] Orientation Straight 11/14/2021 11 :58 AM PST Last Filed Vital Signs Vital Sign Reading Time Taken Comments Blood Pressure 149/83 11/26/2021 1:07 PM PST Pulse 58 11/26/2021 1:07 PM PST Temperature 36.3 C (97.3 F) 11/26/2021 1:07 PM PST Respiratory Rate 18 11/26/2021 1:07 PM PST Oxygen Saturation 100% 11/26/2021 1:07 PM PST Inhaled Oxygen Concentration - - Weight 45.4 kg (100 lb) 02/17/2025 11:53 AM PDT Height 157.5 cm (5' 2) 02/17/2025 11:53 AM PDT Body Mass Index 18.29 02/17/2025 11:53 AM PDT Plan of Treatment Upcoming Encounters Date Type Department Care Team (Late st Contact Info) Description 09/14/2025 9:00 AM PST Office Visit [facility] [address] [facility] [address] [place] [phone] Nick Barba DO [address] [place] [address] Health Maintenance Due Date Last Done Comments Bone Density Scan 1955 Breast Cancer Screening 1955 Medicare Annual Wellness (AWV) 1955 Depression Screening (PHQ-2) 1965 Colorectal Cancer Screening (Colonoscopy) 1998 Colorectal Cancer Screening (FOBT) 1998 Colorectal Cancer Screening (Fecal DNA) 1998 Colorectal Cancer Screening Combined 1998 RSV Patients Over 60 years OR qualifying ( Patients) (1 - Risk 50-74 years 1-dose series) 2003 Fall Risk Screening 2018 COVID-19 Vaccine ( season) 2025 12/02/2024, 05/26/2024, 12/24/2023, Additional history exists Influenza Vaccine (#1) 2025 , 06/21/2023, 06/30/2022, Additional history exists DTaP,Tdap,and Td Vaccines (2 - Td or Tdap) 11/13/2032 11/13/2022 Varicella Vaccines Discontinued 09/20/2014 Zoster Vaccines Completed 11/21/2019, 05/29, 09/20/2014 HM Pneumococcal Adult 50+ Completed 11/10/2022, HM Pneumococcal Combined Age 0-49 Discontinued 11/10/2022, 01/09/2019 HPV Vaccines Aged Out No longer eligi ble based on patient's age to complete this topic Hepatitis A Vaccines Aged Out No long er eligible based on patient's age to complete this topic Hepatitis B Vaccines Aged Out No long er eligible based on patient's age to complete this topic IPV Vaccines Aged Out No longer eligi ble based on patient's age to complete this topic MMR Vaccines Aged Out No longer eligi ble based on patient's age to complete this topic Insurance MEDICARE PART A AND B [facility] Advance Directives Documents on File Type Date Recorded Patient Roving Teller Expl anation Power of Carpet Mechanic 10/26/2019 Care Teams Lunchroom Operator Relationship Specialty Start Date End Date Pcp, None Selected PCP - General 01/12/25
--- OUTSIDE RECORDS SUMMARY | 2025-08-18 13:15 | XMS_ITS | Encounter Summary ---
Author Organization [facility] Address [address] [place] [address] Care Team Providers Care Physician Industrial Name Role Phone Pcp, None Selected Primary Care Provider Unavail able Encounter Details Date Type Department Care Team (Late Contact Info) Description 03/05/[address] [facility] Endocrinology [place] [address] [place] [phone] Nick Barba DO [address] [place] [address] Hypercalcemia Social History Tobacco Use [...] Description 09/14/2025 9:00 AM PST Office Visit [facility] Endocrinology [address] [facility] [address] [place] [phone] Nick Barba, DO [address] [place] [address] documented as of this encounter Procedures Procedure Name Priority Date/Time Associated Diagnosis Comments PTH-RELATED PEPTIDE Routine 02/22/2025 Hypercalcemia VITAMIN A Routine 02/22/2025 Hypercalcemia documented in this encounter Results * PTH-related peptide (02/22/2025) Blood Venous blood / Unknown us Nick Ly DO LAB BLOOD ORDERABLES Final Resul t * Vitamin A (02/22/2025) Blood Venous blood / Unknown us Nick Ly DO LAB BLOOD ORDERABLES Final Resul t documented in this encounter Visit Diagnoses Diagnosis Hypercalcemia documented in this encounter Care Teams Physician Industrial Relationship Specialty Start Date End Date Pcp, None Selected PCP - General 01/12/25 documented as of this encounter
--- OUTSIDE RECORDS SUMMARY | 2025-08-18 13:15 | XMS_ITS | Encounter Summary ---
Author Organization [facility] Address [address] [place] [address] Care Team Providers Care Health Science Specialist Name Role Phone Pcp, None Selected Primary Care Provider Unavail able Encounter Details Date Type Department Care Team (Late st Contact Info) Description 02/13/2025 Abstract [facility] Endocrinology [place] [address] [place] [phone] Nick Barba DO [address] [place] [address] Social History Tobacco Use Types Packs/Day Years [...] Description 09/14/2025 9:00 AM PST Office Visit [facility] Endocrinology [address] [facility] [address] [place] [phone] Nick Barba, DO [address] [place] [address] documented as of this encounter Visit Diagnoses Not on filedocumented in this encounter Care Teams Health Science Specialist Relationship Specialty Start Date End Date Pcp, None Selected PCP - General 01/12/25 documented as of this encounter
--- OUTSIDE RECORDS SUMMARY | 2025-08-18 13:15 | XMS_ITS | Encounter Summary ---
Author Organization [facility] Address [facility] [place] [address] Care Team Providers Care Hat Blocking Machine Operator Name Role Phone Pcp, None Selected Primary Care Provider Unavail able Encounter Details Date Type Department Care Team (Late st Contact Info) Description 05/14/2025 Orders Only [address] [phone] Nick Barba DO [address] [place] [address] Hypervitaminosis A Social History Tobacco Use Types Packs/Day Years [...] 09/14/2025 9:00 AM PST Office Visit [address] [phone] Nick Barba DO [address] [place] [address] documented as of this encounter Procedures Procedure Name Priority Date/Time Associated Diagnosis Comments VITAMIN A Routine 05/03/2025 Hypervitaminosis A documented in this encounter Results * Vitamin A (05/03/2025) Blood Venous blood / Unknown us Nick Ly DO LAB BLOOD ORDERABLES Final Resul t documented in this encounter Visit Diagnoses Diagnosis Hypervitaminosis A documented in this encounter Care Teams Hat Blocking Machine Operator Relationship Specialty Start Date End Date Pcp, None Selected PCP - General 01/12/25 documented as of this encounter
--- OUTSIDE RECORDS SUMMARY | 2025-08-18 13:15 | XMS_ITS | Encounter Summary ---
Author Organization [facility] Address [address] [place] [address] Care Team Providers Care Drapery Worker Name Role Phone Pcp, None Selected Primary Care Provider Unavail able Encounter Details Date Type Department Care Team (Late Contact Info) Description 02/22/2025 Orders Only [facility] Endocrinology [place] [address] [place] [phone] Nick Barba DO [address] [place] [address] Hypercalcemia Social History Tobacco Use [...] Description 09/14/2025 9:00 AM PST Office Visit [facility] Endocrinology [address] [facility] [address] [place] [phone] Nick Barba, DO [address] [place] [address] documented as of this encounter Procedures Procedure Name Priority Date/Time Associated Diagnosis Comments VITAMIN D, 25-HYDROXY Routine 02/22/2025 Hypercalcemia COMPREHENSIVE METABOLIC PANEL Routine 02/22/2025 Hypercalcemia documented in this encounter Results * Vitamin D, 25-Hydroxy (02/22/2025) Blood Venous blood / Unknown us Nick Ly DO LAB BLOOD ORDERABLES Final Resul t * Comprehensive Metabolic Panel (02/22/2025) Blood Venous blood / Unknown us Nick Ly DO LAB BLOOD ORDERABLES Final Resul t documented in this encounter Visit Diagnoses Diagnosis Hypercalcemia documented in this encounter Care Teams Drapery Worker Relationship Specialty Start Date End Date Pcp, None Selected PCP - General 01/12/25 documented as of this encounter
--- OUTSIDE RECORDS SUMMARY | 2025-08-18 13:15 | XMS_ITS | Encounter Summary ---
Author Organization [facility] Address [facility] [place] [address] Care Team Providers Care Chemical Engineering Teacher Name Role Phone Pcp, None Selected Primary Care Provider Unavail able Encounter Details Date Type Department Care Team (Late st Contact Info) Description 05/03/2025 Orders Only [address] [phone] Nick Barba DO [address] [place] [address] Elevated AST (SGOT) Social History [...] Description 09/14/2025 9:00 AM PST Office Visit [address] [phone] Nick Barba DO [address] [place], [place] [phone] documented as of this encounter Procedures Procedure Name Priority Date/Time Associated Diagnosis Comments COMPREHENSIVE METABOLIC PANEL Routine 05/03/2025 Elevated AST (SGOT) documented in this encounter Results * Comprehensive Metabolic Panel (05/03/2025) Blood Venous blood / Unknown us Nick Ly DO LAB BLOOD ORDERABLES Final Resul t documented in this encounter Visit Diagnoses Diagnosis Elevated AST (SGOT) documented in this encounter Care Teams Chemical Engineering Teacher Relationship Specialty Start Date End Date Pcp, None Selected PCP - General 01/12/25 documented as of this encounter
--- OUTSIDE RECORDS SUMMARY | 2025-08-18 13:16 | XMS_ITS | Encounter Summary ---
Author Organization [facility] Address [facility] [place] [address] Care Team Providers Care Gang Vibrator Operator Name Role Phone Pcp, None Selected Primary Care Provider Unavail able Encounter Details Date Type Department Care Team (Late Contact Info) Description 11/20/2021 Abstract Oncology [address], [address] [place] [phone] Fernandez Benavides MD [address] [place] [address] Social History Tobacco Use Types Packs/Day Years [...] Description 09/14/2025 9:00 AM PST Office Visit [facility] Endocrinology [address] [facility] [address] [place] [address] Nick Barba, DO [address] [place] [address] documented as of this encounter Visit Diagnoses Not on filedocumented in this encounter Care Teams Gang Vibrator Operator Relationship Specialty Start Date End Date Pcp, None Selected PCP - General 01/12/25 documented as of this encounter
== END ==
LOC: MAMMO 07:39
PROVIDERS: PCP Physician Assistant; Referring Provider Physician Assistant
DX: R92.8 Other abnormal and inconclusive findings on diagnostic imaging of breast (principal); N60.02 Solitary cyst of left breast; R92.342 Mammographic extreme density, left breast
CPT/HCPCS: 76642; 77065; G0279

== ENCOUNTER → 2025-08-22 07:13 | Outpatient (CLI) | payer MEDICARE, OTHER, SELFPAY ==
[2025-08-22 09:20] LABS: Alanine Aminotransferase 28 IU/L (<35); Albumin 4.9 g/dL (3.5-5.0); Albumin Globulin Ratio 1.5 (1.0-2.8); Alkaline Phosphatase 122 U/L (38-126); Blood Urea Nitrogen 17 mg/dL (7-17); Calcium 10.1 mg/dL (8.4-10.2); Carbon Dioxide 24 mmol/L (22-32); Chloride 110 mmol/L (98-107); Estimated Glomerular Filt Rate > 60 mL/min (>60); Globulin 3.3 g/dL (1.7-4.1); Glucose 91 mg/dL (70-99); HEMOLYSIS < 15 (0-50); Potassium 4.6 mmol/L (3.4-5.1); Sodium 145 mmol/L (137-145); Total Protein 8.2 g/dL (6.3-8.2)
== END ==
PROVIDERS: PCP Physician Assistant; Referring Provider Physician Assistant; Visit Provider Internal Medicine Endocrinology, Diabetes & Metabolism
DX: E83.52 Hypercalcemia (principal)
CPT/HCPCS: 36415; 80053